=== PATIENT | female | born 1950 | race Caucasian/White ===

== ENCOUNTER → 2017-04-18 | Outpatient (CLI) | payer OTHER ==
[~2017-04-18] MED LIST: BP MED PO; DARVOCET N 1001 TAB PO; HYDROCODONE BIT1 T11 PO; KEFLEX500 MG PO; LASIX40 MG PO; LIDEX0.05% T; PREDNICOT20 MG PO; PREDNISONE10 MG PO; PREDNISONE20 M1 PO; ROBITUSSIN DM 105 ML PO; ZITHROMAX Z PA250 MG PO; ZITHROMAX250 MG PO; ZOLOFT25 MG PO
== END | disposition home or self-care (01) ==
LOC: RAD 14:12
DX: R05 Cough (principal); F17.200 Nicotine dependence, unspecified, uncomplicated; Z72.0 Tobacco use

== ENCOUNTER → 2017-04-19 | Outpatient (CLI) | payer OTHER | END | disposition home or self-care (01) | LOC: MAMMO 04:08 | DX: Z12.31 Encounter for screening mammogram for malignant neoplasm of breast (principal) ==

== ENCOUNTER → 2018-03-09 | Outpatient (CLI) | payer OTHER | END | disposition home or self-care (01) | LOC: RAD 14:32 | DX: J21.9 Acute bronchiolitis, unspecified (principal); R05 Cough; R09.3 Abnormal sputum; R53.83 Other fatigue; R42 Dizziness and giddiness ==

== ENCOUNTER 2018-06-03 14:30 | Emergency (ER) | payer OTHER ==
[~2018-06-03] VITALS: Ht 160 cm; Wt 95.3 kg
--- NOTE | ~2018-06-03 | EKG ---
[place], [place] ELECTROCARDIOGRAM REPORT NAME: DEAN MOLINA UNIT #: [id number] ROOM: DOCTOR: EPIPHANY DRAFT REPORT BIRTHDATE: [birth year] [facility] Test Date: 2018-06-03 Test Time: 19:06:15 Pat Name: DEAN MOLINA Department: ER Room: 16 Gender: F Mail Clerk: EKG.[place] : 1950 Requested By: ALLISON BRAR PA-C Order Number: [id number] Reading MD: Adam Cannon MD Measurements Intervals [place] Rate: 77 P: 51 IN: 148 QRS: -13 QRSD: 94 T: 48 QT: 428 QTc: 485 Interpretive Statements Sinus rhythm Low voltage, precordial leads Electronically Signed On 06-07-2018 15:06:18 PDT by Adam Cannon MD CM:EKGRPT:ELECTROCARDIOGRAM REPORT [id number] ALLISON BRAR PA-C EPIPHANY DRAFT REPORT ALLISON BRAR PA-C
[2018-06-03 16:59] LABS: BASO # 0.1 10*3/uL (0.0-0.1); BASO % 1.5 % (0.0-1.0); EOS # 0.2 10*3/uL (0.0-0.4); EOS % 1.9 % (1.0-4.0); HEMATOCRIT 43.4 % (37.0-47.0); HEMOGLOBIN 13.8 g/dl (12.0-16.0); LYMPH # 2.7 10*3/uL (1.3-4.4); LYMPH % 31.8 % (27.0-41.0); MEAN CELL VOLUME 102.4 fl (81.0-99.0); MEAN CORPUSCULAR HGB 32.5 pg (27.0-31.0); MEAN CORPUSCULAR HGB CONC 31.8 g/dl (33.0-37.0); MEAN PLATELET VOLUME 10.1 fl (9.6-12.3); MONO # 0.4 10*3/uL (0.1-1.0); MONO % 4.8 % (3.0-9.0); NEUT # 5.1 10*3/uL (2.3-7.9); NEUT % 59.8 % (47.0-73.0); PLATELET COUNT AUTOMATED 221 10*3/uL (130-400); RED BLOOD COUNT 4.24 10*6/uL (4.10-5.10); RED CELL DISTRI WIDTH 13.7 % (0-14.5); WHITE BLOOD COUNT 8.5 10*3/uL (4.8-10.8)
[2018-06-03 17:08] LABS: ACT PARTIAL THROMBO TIME 22.7 SECONDS (20.8-31.5); INTERNATIONAL NORM RATIO 0.9 (2.0-3.5)
[2018-06-03 17:22] LABS: ALBUMIN 3.4 gm/dl (3.1-4.5); CREATININE 1.15 mg/dL (0.55-1.02); POTASSIUM 4.5 mmol/L (3.5-5.1); TOTAL PROTEIN 7.5 gm/dL (6.4-8.2)
== END 2018-06-03 21:00 | disposition short-term general hospital (02) ==
LOC: ED 14:30
PROVIDERS: Physician Assistant
DX: I71.4 Abdominal aortic aneurysm, without rupture (principal); I95.9 Hypotension, unspecified; M79.661 Pain in right lower leg; M25.551 Pain in right hip; R20.0 Anesthesia of skin; M19.90 Unspecified osteoarthritis, unspecified site; F17.200 Nicotine dependence, unspecified, uncomplicated; Z79.899 Other long term (current) drug therapy

== ENCOUNTER 2018-11-05 16:34 | Emergency (ER) | payer OTHER ==
[~2018-11-05] VITALS: Ht 160 cm; Wt 92.1 kg
[2018-11-05] MEDS ORDERED: MEDROL DOSEPAK4 MG PO (18:34)
== END 2018-11-05 18:40 | disposition home or self-care (01) ==
LOC: ED 16:34
DX: S76.012A Strain of muscle, fascia and tendon of left hip, initial encounter (principal); Z79.899 Other long term (current) drug therapy; Z79.2 Long term (current) use of antibiotics; Z90.710 Acquired absence of both cervix and uterus; X58.XXXA Exposure to other specified factors, initial encounter; Y93.89 Activity, other specified; Y92.89 Other specified places as the place of occurrence of the external cause; Y99.8 Other external cause status

== ENCOUNTER → 2019-02-26 | Outpatient (CLI) | payer OTHER ==
[~2019-02-26] MED LIST changes: +MEDROL DOSEPAK4 MG PO
[2019-02-26 15:45] LABS: BASO # 0.1 10*3/uL (0.0-0.1); BASO % 1.3 % (0.0-1.0); EOS # 0.2 10*3/uL (0.0-0.4); EOS % 1.5 % (1.0-4.0); HEMATOCRIT 42.2 % (37.0-47.0); HEMOGLOBIN 13.5 g/dl (12.0-16.0); LYMPH # 2.9 10*3/uL (1.3-4.4); LYMPH % 28.3 % (27.0-41.0); MEAN CELL VOLUME 105.8 fl (81.0-99.0); MEAN CORPUSCULAR HGB 33.8 pg (27.0-31.0); MONO # 0.4 10*3/uL (0.1-1.0); MONO % 4.3 % (3.0-9.0); NEUT # 6.6 10*3/uL (2.3-7.9); NEUT % 64.4 % (47.0-73.0); PLATELET COUNT AUTOMATED 292 10*3/uL (130-400); RED BLOOD COUNT 3.99 10*6/uL (4.10-5.10); RED CELL DISTRI WIDTH 13.9 % (0-14.5); WHITE BLOOD COUNT 10.3 10*3/uL (4.8-10.8)
[2019-02-26 15:59] LABS: CREATININE 1.53 mg/dL (0.55-1.02); POTASSIUM 3.9 mmol/L (3.5-5.1); TOTAL PROTEIN 7.9 gm/dL (6.4-8.2)
== END | disposition home or self-care (01) ==
LOC: LAB 15:26
PROVIDERS: Internal Medicine Nephrology
DX: E11.9 Type 2 diabetes mellitus without complications (principal); I10 Essential (primary) hypertension

== ENCOUNTER → 2019-12-13 | Outpatient (CLI) | payer MEDICARE | END | disposition home or self-care (01) | LOC: MAMMO 10:30 | PROVIDERS: ATTEND Family Medicine | DX: Z12.31 Encounter for screening mammogram for malignant neoplasm of breast (principal) ==

== ENCOUNTER → 2020-01-17 | Outpatient (CLI) | payer MEDICARE ==
[2020-01-17 10:11] LABS: BILIRUBIN Negative (Negative); BLOOD 1+ (Negative); CLARITY Clear (Clear); COLOR Yellow (Yellow); GLUCOSE Negative (Negative); KETONE Negative (Negative); LEUKO ESTERASE 3+ (Negative); NITRITE Negative (Negative); SPECIFIC GRAVITY 1.015 (1.001-1.030); UROBILINOGEN 0.2 E.U./dl (0.0-1.0)
[2020-01-17 11:20] LABS: VITAMIN D, 25-HYDROXY 96.8 ng/mL (30-100)
[2020-01-18 10:11] LABS: CREATININE,URINE 84.3 mg/dL (Not Estab.)
== END | disposition home or self-care (01) ==
LOC: LAB 08:22 → US 08:30
PROVIDERS: ATTEND Internal Medicine Nephrology
DX: N13.30 Unspecified hydronephrosis (principal); I12.9 Hypertensive chronic kidney disease with stage 1 through stage 4 chronic kidney disease, or unspecified chronic kidney disease; N18.32 Chronic kidney disease, stage 3b; E55.9 Vitamin D deficiency, unspecified

== ENCOUNTER 2020-07-08 16:15 | Emergency (ER) | payer OTHER ==
[~2020-07-08] VITALS: Ht 157.4 cm; Wt 89.4 kg
[2020-07-08 17:23] LABS: BILIRUBIN Negative (Negative); BLOOD Trace-Intact (Negative); CLARITY Cloudy (Clear); COLOR Yellow (Yellow); GLUCOSE Negative (Negative); KETONE Trace (Negative); LEUKO ESTERASE Negative (Negative); NITRITE Negative (Negative); SPECIFIC GRAVITY 1.025 (1.001-1.030)
[2020-07-08 17:24] LABS: BASO # 0.1 10*3/uL (0.0-0.1); BASO % 1.2 % (0.0-1.0); EOS # 0.3 10*3/uL (0.0-0.4); HEMATOCRIT 41.7 % (37.0-47.0); LYMPH # 1.7 10*3/uL (1.3-4.4); MEAN CELL VOLUME 97.9 fl (81.0-99.0); MEAN CORPUSCULAR HGB 30.3 pg (27.0-31.0); MEAN CORPUSCULAR HGB CONC 30.9 g/dl (33.0-37.0); MEAN PLATELET VOLUME 9.9 fl (9.6-12.3); MONO # 0.5 10*3/uL (0.1-1.0); MONO % 5.8 % (3.0-9.0); NEUT # 5.8 10*3/uL (2.3-7.9); NEUT % 69.8 % (47.0-73.0); PLATELET COUNT AUTOMATED 382 10*3/uL (130-400); RED BLOOD COUNT 4.26 10*6/uL (4.10-5.10); RED CELL DISTRI WIDTH 15.5 % (0-14.5); WHITE BLOOD COUNT 8.3 10*3/uL (4.8-10.8)
[2020-07-08 17:42] LABS: ALBUMIN 3.6 gm/dl (3.1-4.5); CREATININE 1.09 mg/dL (0.55-1.02); POTASSIUM 4.3 mmol/L (3.5-5.1); TOTAL PROTEIN 7.5 gm/dL (6.4-8.2)
[2020-07-08 18:24] LABS: BACTERIA 2+; CALCIUM OXALATE CRYSTALS 2+; EPITHELIAL CELLS 51-100; WBC 0-2 wbc/hpf (0-5); YEAST TRACE
== END 2020-07-08 20:15 | disposition home or self-care (01) ==
LOC: ED 16:15
PROVIDERS: Emergency Medicine; Student in an Organized Health Care Education/Training Program
DX: R53.81 Other malaise (principal); R63.0 Anorexia; Z79.899 Other long term (current) drug therapy

== ENCOUNTER → 2020-11-19 | Outpatient (CLI) | payer OTHER ==
[~2020-11-19] MED LIST changes: +ASPIRIN ADULT L81 M1 PO; +ATORVASTATIN CA40 M1 PO; +BRILINTA90 M1 PO; +CARVEDILOL6.25 MG PO; +DONEPEZIL HCL10 MG PO; +GOOD NEIGHBOR L10 MG PO; +LISINOPRIL40 MG PO; +PROTONIX IV40 MG IV; +PROTONIX40 MG PO; +VITAMIN D3125 MC1 PO
== END | disposition home or self-care (01) ==
LOC: COVID19 18:22
PROVIDERS: ATTEND Family Medicine
DX: Z11.52 Encounter for screening for COVID-19 (principal)

== ENCOUNTER → 2021-08-06 | Outpatient (CLI) | payer MEDICARE | END | disposition home or self-care (01) | LOC: WOUNDCARE 01:46 | PROVIDERS: ATTEND Nurse Practitioner Family | DX: L89.323 Pressure ulcer of left buttock, stage 3 (principal); I12.9 Hypertensive chronic kidney disease with stage 1 through stage 4 chronic kidney disease, or unspecified chronic kidney disease; N18.30 Chronic kidney disease, stage 3 unspecified; J44.9 Chronic obstructive pulmonary disease, unspecified; I25.10 Atherosclerotic heart disease of native coronary artery without angina pectoris; E78.5 Hyperlipidemia, unspecified; F01.50 Vascular dementia, unspecified severity, without behavioral disturbance, psychotic disturbance, mood disturbance, and anxiety; Z90.710 Acquired absence of both cervix and uterus; Z90.89 Acquired absence of other organs ==

== ENCOUNTER → 2021-08-12 | Outpatient (CLI) | payer MEDICARE | END | disposition home or self-care (01) | LOC: WOUNDCARE 01:41 | PROVIDERS: ATTEND Nurse Practitioner Family | DX: L89.323 Pressure ulcer of left buttock, stage 3 (principal); I12.9 Hypertensive chronic kidney disease with stage 1 through stage 4 chronic kidney disease, or unspecified chronic kidney disease; N18.30 Chronic kidney disease, stage 3 unspecified; E78.5 Hyperlipidemia, unspecified; I25.10 Atherosclerotic heart disease of native coronary artery without angina pectoris; J44.9 Chronic obstructive pulmonary disease, unspecified; F17.200 Nicotine dependence, unspecified, uncomplicated; Z90.710 Acquired absence of both cervix and uterus; Z95.818 Presence of other cardiac implants and grafts ==

== ENCOUNTER → 2021-08-20 | Outpatient (CLI) | payer MEDICARE | END | disposition home or self-care (01) | LOC: RESCLI 02:26 | PROVIDERS: ATTEND Internal Medicine | DX: Z12.39 Encounter for other screening for malignant neoplasm of breast (principal); Z78.0 Asymptomatic menopausal state; Z12.11 Encounter for screening for malignant neoplasm of colon; I10 Essential (primary) hypertension; I25.10 Atherosclerotic heart disease of native coronary artery without angina pectoris; I11.9 Hypertensive heart disease without heart failure; J44.9 Chronic obstructive pulmonary disease, unspecified; E53.8 Deficiency of other specified B group vitamins; E55.9 Vitamin D deficiency, unspecified; F03.90 Unspecified dementia, unspecified severity, without behavioral disturbance, psychotic disturbance, mood disturbance, and anxiety; E78.5 Hyperlipidemia, unspecified; Z79.899 Other long term (current) drug therapy; F32.9 Major depressive disorder, single episode, unspecified; Z79.82 Long term (current) use of aspirin; Z90.710 Acquired absence of both cervix and uterus ==

== ENCOUNTER → 2021-09-17 | Outpatient (CLI) | payer OTHER | END | disposition home or self-care (01) | LOC: RAD/SH 08-27 10:00 | PROVIDERS: ATTEND Internal Medicine | DX: R13.10 Dysphagia, unspecified (principal) ==

== ENCOUNTER 2022-01-25 15:03 | Emergency (ER) | payer OTHER ==
[~2022-01-25 15:03] MED LIST changes: +MEMANTINE HCL5 MG PO
== END 2022-01-25 16:09 | disposition left against medical advice (07) ==
LOC: ED 15:03
DX: Z53.21 Procedure and treatment not carried out due to patient leaving prior to being seen by health care provider (principal)

== ENCOUNTER 2022-04-02 14:02 | Inpatient (IN) | payer OTHER ==
[~2022-04-02] VITALS: Ht 160 cm; Wt 74.0 kg
[2022-04-02 14:47] LABS: BASO # 0.1 10*3/uL (0.0-0.1); BASO % 1.3 % (0.0-1.0); EOS # 0.1 10*3/uL (0.0-0.4); HEMATOCRIT 42.1 % (37.0-47.0); LYMPH # 1.9 10*3/uL (1.3-4.4); LYMPH % 23.5 % (27.0-41.0); MEAN CELL VOLUME 98.6 fl (81.0-99.0); MEAN CORPUSCULAR HGB 30.2 pg (27.0-31.0); MEAN CORPUSCULAR HGB CONC 30.6 g/dl (33.0-37.0); MEAN PLATELET VOLUME 10.4 fl (9.6-12.3); MONO # 0.3 10*3/uL (0.1-1.0); MONO % 4.3 % (3.0-9.0); NEUT # 5.5 10*3/uL (2.3-7.9); NEUT % 69.8 % (47.0-73.0); PLATELET COUNT AUTOMATED 222 10*3/uL (130-400); RED BLOOD COUNT 4.27 10*6/uL (4.10-5.10); RED CELL DISTRI WIDTH 13.7 % (0-14.5); WHITE BLOOD COUNT 7.9 10*3/uL (4.8-10.8)
[2022-04-02 15:04] VITALS: BP 70/30
[2022-04-02 15:15] LABS: INTERNATIONAL NORM RATIO 0.9 (2.0-3.5)
[2022-04-02 15:20] LABS: ALKALINE PHOSPHATASE 61 U/L (46-116); BUN 25 mg/dl (9-23); CHLORIDE 104 mmol/L (98-107); LIPASE 62 U/L (12-53); SGPT/ALT 11 U/L (10-49); TOTAL PROTEIN 6.3 gm/dL (6.0-8.0)
[2022-04-02 15:30] VITALS: BP 86/48
[2022-04-02 18:30] VITALS: BP 120/62
[2022-04-02] MEDS ORDERED: NATURE'S BLEND F1 MG PO (18:48)
[2022-04-02] MEDS ORDERED: ZESTRIL2.5 MG PO (18:49)
[2022-04-02] MEDS ORDERED: LIPITOR10 MG PO (18:49)
[2022-04-02] MEDS ORDERED: NAMENDA10 MG PO (18:50)
[2022-04-02] MEDS ORDERED: NITROSTAT0.4 MG SL (18:51)
[2022-04-02] MEDS ORDERED: ZOLOFT25 MG PO (18:52)
[2022-04-02] MEDS ORDERED: TERBINAFINE250 MG PO (18:52)
[2022-04-02] MEDS ORDERED: METOPROLOL SUCC25 M2 PO (18:53)
[2022-04-02] MEDS ORDERED: HYDR1000 IJ (18:55)
[2022-04-02 22:00] VITALS: BP 127/45
[2022-04-03] VITALS: BP 116/46
[2022-04-03 06:32] LABS: POTASSIUM 4.5 mmol/L (3.4-5.1)
[2022-04-03 08:00] VITALS: BP 128/50
[2022-04-03 12:00] VITALS: BP 130/54
[2022-04-03 16:00] VITALS: BP 104/50
[2022-04-03 20:00] VITALS: BP 114/39
[2022-04-04] VITALS: BP 140/59
[2022-04-04 03:05] VITALS: BP 124/47
[2022-04-04 08:00] VITALS: BP 117/55
[2022-04-04 12:00] VITALS: BP 90/50
[2022-04-04 12:45] LABS: BILIRUBIN Negative (Negative); BLOOD Negative (Negative); CLARITY Clear (Clear); COLOR Yellow (Yellow); GLUCOSE Negative (Negative); KETONE Negative (Negative); LEUKO ESTERASE Negative (Negative); NITRITE Negative (Negative); SPECIFIC GRAVITY 1.015 (1.001-1.030); UROBILINOGEN 0.2 E.U./dl (0.0-1.0)
[2022-04-04 12:58] LABS: BACTERIA 2+; EPITHELIAL CELLS 21-30; MUCOUS 1+; WBC 0-2 wbc/hpf (0-5)
[2022-04-04 16:00] VITALS: BP 92/43
[2022-04-04 20:00] VITALS: BP 103/48
[2022-04-05] VITALS: BP 95/65
[2022-04-05 05:43] LABS: BUN 12 mg/dl (9-23); CHLORIDE 109 mmol/L (98-107); POTASSIUM 4.2 mmol/L (3.4-5.1)
[2022-04-05 06:36] LABS: BASO # 0.1 10*3/uL (0.0-0.1); BASO % 1.1 % (0.0-1.0); EOS # 0.1 10*3/uL (0.0-0.4); EOS % 1.7 % (1.0-4.0); HEMATOCRIT 36.6 % (37.0-47.0); LYMPH # 1.8 10*3/uL (1.3-4.4); LYMPH % 38.1 % (27.0-41.0); MEAN CELL VOLUME 99.5 fl (81.0-99.0); MEAN CORPUSCULAR HGB 29.9 pg (27.0-31.0); MEAN CORPUSCULAR HGB CONC 30.1 g/dl (33.0-37.0); MEAN PLATELET VOLUME 10.4 fl (9.6-12.3); MONO # 0.2 10*3/uL (0.1-1.0); MONO % 4.2 % (3.0-9.0); NEUT # 2.6 10*3/uL (2.3-7.9); NEUT % 54.7 % (47.0-73.0); PLATELET COUNT AUTOMATED 185 10*3/uL (130-400); RED BLOOD COUNT 3.68 10*6/uL (4.10-5.10); RED CELL DISTRI WIDTH 13.7 % (0-14.5); WHITE BLOOD COUNT 4.7 10*3/uL (4.8-10.8)
[2022-04-05 08:00] VITALS: BP 107/66
[2022-04-05 12:00] VITALS: BP 106/50
[2022-04-05 16:00] VITALS: BP 100/49
[2022-04-05 20:00] VITALS: BP 101/72
[2022-04-06] VITALS: BP 101/41
[2022-04-06 08:00] VITALS: BP 112/40
[2022-04-06 12:00] VITALS: BP 102/47
[2022-04-06 16:00] VITALS: BP 122/43
[2022-04-06 20:00] VITALS: BP 104/35
[2022-04-07] VITALS: BP 118/38
[2022-04-07 08:00] VITALS: BP 153/66
[2022-04-07 08:28] LABS: POTASSIUM 4.4 mmol/L (3.4-5.1)
[2022-04-07 12:00] VITALS: BP 111/52
[2022-04-07 16:00] VITALS: BP 112/60
[2022-04-07 20:00] VITALS: BP 95/81
[2022-04-07 21:30] VITALS: BP 110/68
[2022-04-08] VITALS: BP 109/50
[2022-04-08 08:00] VITALS: BP 106/76
[2022-04-08 12:00] VITALS: BP 132/50
[2022-04-08 16:00] VITALS: BP 132/52
[2022-04-08] MEDS ORDERED: NAMENDA10 MG PO (16:27)
[2022-04-09] VITALS: BP 111/47
[2022-04-09 08:00] VITALS: BP 134/56
== END 2022-04-09 14:23 | disposition home or self-care (01) | DRG 640 ==
LOC: ED 14:02 → 4E 16:38 → EDHOLD 16:38 → 4E 18:08
PROVIDERS: Emergency Medicine; Internal Medicine; ADMIT Internal Medicine; ATTEND Internal Medicine
DX: E86.0 Dehydration (principal); N17.0 Acute kidney failure with tubular necrosis; E44.1 Mild protein-calorie malnutrition; R78.81 Bacteremia; E87.20 Acidosis, unspecified; B95.7 Other staphylococcus as the cause of diseases classified elsewhere; G30.1 Alzheimer's disease with late onset; F02.80 Dementia in other diseases classified elsewhere, unspecified severity, without behavioral disturbance, psychotic disturbance, mood disturbance, and anxiety; K21.9 Gastro-esophageal reflux disease without esophagitis; E78.5 Hyperlipidemia, unspecified; I25.10 Atherosclerotic heart disease of native coronary artery without angina pectoris; I10 Essential (primary) hypertension; R73.9 Hyperglycemia, unspecified; I95.9 Hypotension, unspecified; F32.9 Major depressive disorder, single episode, unspecified; R62.7 Adult failure to thrive; E55.9 Vitamin D deficiency, unspecified; Z90.711 Acquired absence of uterus with remaining cervical stump; Z82.49 Family history of ischemic heart disease and other diseases of the circulatory system; Z83.3 Family history of diabetes mellitus; Z68.28 Body mass index [BMI] 28.0-28.9, adult

== ENCOUNTER 2022-05-11 09:12 | Emergency (ER) | payer OTHER ==
[~2022-05-11] VITALS: Ht 160 cm; Wt 72.6 kg
[~2022-05-11 09:12] MED LIST changes: +HYDR1000 IJ; +LIPITOR10 MG PO; +METOPROLOL SUCC25 M2 PO; +NAMENDA10 MG PO; +NATURE'S BLEND F1 MG PO; +NITROSTAT0.4 MG SL; +TERBINAFINE250 MG PO; +ZESTRIL2.5 MG PO
== END 2022-05-11 09:23 ==
LOC: ED 09:12
DX: Z04.3 Encounter for examination and observation following other accident (principal); Z79.899 Other long term (current) drug therapy; Z79.82 Long term (current) use of aspirin; Z90.711 Acquired absence of uterus with remaining cervical stump; Z90.89 Acquired absence of other organs; W18.39XA Other fall on same level, initial encounter; Y93.89 Activity, other specified; Y92.128 Other place in nursing home as the place of occurrence of the external cause; Y99.8 Other external cause status

== ENCOUNTER 2023-01-22 20:16 | Emergency (ER) | payer MEDICARE ==
[~2023-01-22] VITALS: Ht 162.5 cm; Wt 72.6 kg
[2023-01-22 20:43] LABS: BASO # 0.1 10*3/uL (0.0-0.1); BASO % 0.9 % (0.0-1.0); EOS # 0.1 10*3/uL (0.0-0.4); EOS % 1.6 % (1.0-4.0); HEMATOCRIT 37.8 % (37.0-47.0); LYMPH # 2.1 10*3/uL (1.3-4.4); LYMPH % 27.4 % (27.0-41.0); MEAN CELL VOLUME 102.7 fl (81.0-99.0); MEAN CORPUSCULAR HGB 33.2 pg (27.0-31.0); MEAN CORPUSCULAR HGB CONC 32.3 g/dl (33.0-37.0); MEAN PLATELET VOLUME 10.1 fl (9.6-12.3); MONO # 0.5 10*3/uL (0.1-1.0); MONO % 6.6 % (3.0-9.0); NEUT # 4.8 10*3/uL (2.3-7.9); NEUT % 63.4 % (47.0-73.0); PLATELET COUNT AUTOMATED 209 10*3/uL (130-400); RED BLOOD COUNT 3.68 10*6/uL (4.10-5.10); RED CELL DISTRI WIDTH 13.2 % (0-14.5); WHITE BLOOD COUNT 7.6 10*3/uL (4.8-10.8)
[2023-01-22 21:02] LABS: ACT PARTIAL THROMBO TIME 23.1 SECONDS (20.0-32.1)
[2023-01-22 21:17] LABS: ALKALINE PHOSPHATASE 55 U/L (46-116); BUN 29 mg/dl (9-23); CHLORIDE 109 mmol/L (98-107); LIPASE 69 U/L (12-53); POTASSIUM 3.9 mmol/L (3.4-5.1); SGPT/ALT < 7 U/L (5-49); TOTAL PROTEIN 6.9 gm/dL (6.0-8.0)
[2023-01-22 23:25] LABS: BILIRUBIN Negative (Negative); BLOOD Negative (Negative); CLARITY Cloudy (Clear); COLOR Yellow (Yellow); GLUCOSE Negative (Negative); KETONE Negative (Negative); LEUKO ESTERASE 1+ (Negative); NITRITE Negative (Negative); SPECIFIC GRAVITY 1.025 (1.001-1.030)
[2023-01-22 23:34] LABS: BACTERIA 1+; MUCOUS 1+
[2023-01-22] MEDS ORDERED: CIPRO500 MG PO (23:50)
== END 2023-01-22 23:56 | disposition home or self-care (01) ==
LOC: ED 20:16
PROVIDERS: Internal Medicine
DX: N39.0 Urinary tract infection, site not specified (principal); E86.0 Dehydration; R10.2 Pelvic and perineal pain; I10 Essential (primary) hypertension; F32.A Depression, unspecified; I25.10 Atherosclerotic heart disease of native coronary artery without angina pectoris; M19.90 Unspecified osteoarthritis, unspecified site; F03.90 Unspecified dementia, unspecified severity, without behavioral disturbance, psychotic disturbance, mood disturbance, and anxiety; Z90.89 Acquired absence of other organs; Z90.711 Acquired absence of uterus with remaining cervical stump; Z98.890 Other specified postprocedural states

== ENCOUNTER 2024-03-10 07:43 | Emergency (ER) | payer OTHER ==
[~2024-03-10] VITALS: Ht 165.1 cm; Wt 91.2 kg
[~2024-03-10 07:43] MED LIST changes: +CIPRO500 MG PO
[2024-03-10] MEDS ORDERED: SODIUM CHLORIDE 0.9% 1,000 ML IV ONE (07:55)
[2024-03-10 08:14] LABS: BASO # 0.1 10*3/uL (0.0-0.1); BASO % 0.9 % (0.0-1.0); EOS # 0.1 10*3/uL (0.0-0.4); EOS % 1.1 % (1.0-4.0); HEMATOCRIT 44.1 % (37.0-47.0); MEAN CELL VOLUME 100.2 fl (81.0-99.0); MEAN CORPUSCULAR HGB 29.8 pg (27.0-31.0); MEAN CORPUSCULAR HGB CONC 29.7 g/dl (33.0-37.0); MEAN PLATELET VOLUME 9.9 fl (9.6-12.3); MONO # 0.4 10*3/uL (0.1-1.0); MONO % 4.3 % (3.0-9.0); NEUT % 81.7 % (47.0-73.0); PLATELET COUNT AUTOMATED 172 10*3/uL (130-400); WHITE BLOOD COUNT 8.6 10*3/uL (4.8-10.8)
[2024-03-10 08:40] LABS: POTASSIUM 4.8 mmol/L (3.4-5.1)
== END 2024-03-10 10:00 ==
LOC: ED 07:43
PROVIDERS: Emergency Medicine
DX: R42 Dizziness and giddiness (principal); M54.50 Low back pain, unspecified; E11.9 Type 2 diabetes mellitus without complications; I10 Essential (primary) hypertension; E78.5 Hyperlipidemia, unspecified; F03.90 Unspecified dementia, unspecified severity, without behavioral disturbance, psychotic disturbance, mood disturbance, and anxiety; F32.A Depression, unspecified; I25.10 Atherosclerotic heart disease of native coronary artery without angina pectoris; M19.90 Unspecified osteoarthritis, unspecified site; Z98.890 Other specified postprocedural states; Z90.711 Acquired absence of uterus with remaining cervical stump; Z90.89 Acquired absence of other organs; W19.XXXA Unspecified fall, initial encounter

== ENCOUNTER 2024-07-08 09:03 | Emergency (ER) | payer OTHER ==
[~2024-07-08] VITALS: Ht 160 cm; Wt 92.5 kg
[2024-07-08] MEDS ORDERED: Albuterol Sulf/Ipratropium 3 ML VIAL NEB SCH (09:45)
[2024-07-08] MEDS ORDERED: NYSTOP60 GM T (09:48)
[2024-07-08] MEDS ORDERED: MIDODRINE HCL2.5 MG PO (09:49)
[2024-07-08 10:00] LABS: BASO # 0.1 10*3/uL (0.0-0.1); BASO % 0.8 % (0.0-1.0); EOS # 0.1 10*3/uL (0.0-0.4); EOS % 1.3 % (1.0-4.0); HEMATOCRIT 39.9 % (37.0-47.0); MEAN CELL VOLUME 101.5 fl (81.0-99.0); MEAN CORPUSCULAR HGB 30.3 pg (27.0-31.0); MEAN CORPUSCULAR HGB CONC 29.8 g/dl (33.0-37.0); MEAN PLATELET VOLUME 10.3 fl (9.6-12.3); MONO # 0.6 10*3/uL (0.1-1.0); MONO % 5.4 % (3.0-9.0); NEUT # 8.5 10*3/uL (2.3-7.9); NEUT % 83.9 % (47.0-73.0); PLATELET COUNT AUTOMATED 160 10*3/uL (130-400); RED BLOOD COUNT 3.93 10*6/uL (4.10-5.10); RED CELL DISTRI WIDTH 14.1 % (0-14.5); WHITE BLOOD COUNT 10.2 10*3/uL (4.8-10.8)
== END 2024-07-08 13:57 ==
LOC: ED 09:03
PROVIDERS: Emergency Medicine
DX: R05.9 Cough, unspecified (principal); R10.10 Upper abdominal pain, unspecified; Z79.899 Other long term (current) drug therapy; Z79.82 Long term (current) use of aspirin; Z90.711 Acquired absence of uterus with remaining cervical stump; Z98.890 Other specified postprocedural states; Z95.5 Presence of coronary angioplasty implant and graft